=== PATIENT | female | born 1955 | race Caucasian/White ===

== ENCOUNTER → 2022-01-22 | Outpatient (CLI) | payer MEDICARE ==
--- NOTE | 2022-01-22 13:13 | RAD ---
Exam: CT abdomen/pelvis without intravenous contrast Indication: Left flank pain, started today. Hematuria Comparison: None Technique: Helical CT imaging performed of the abdomen and pelvis without the use of intravenous cont rast. Sagittal and coronal reformats were obtained. One or more of the following individualized dose reduction techniques were utilized for this examinat ion: 1. Automated exposure control 2. Adjustment of the mA and/or kV according to patient size 3. Use of iterative reconstruction technique. Findings: Inherently limited evaluation without intravenous contrast. Lower chest: Lung bases are clear. The heart is normal in size. Liver: There is a calcification in the dome of the liver. The liver is otherwise unremarkable in appe arance. Gallbladder/Biliary Tree: Normal. Pancreas: Normal. Spleen: Normal. Adrenal Glands: Normal. Kidneys/Ureters/Bladder: Kidneys are normal in size. There is no visualized urolithiasis or hydroneph rosis. The visualized portion of ureters are normal. Distal ureters and bladder are obscured by strea k artifact from hip prostheses. Reproductive Organs: Uterus is unremarkable. No adnexal mass visualized. Stomach, small bowel, and colon: The stomach is normal. There is no small bowel obstruction. Mild sca ttered diverticula in the descending and sigmoid colon. The appendix is normal. Vasculature: Abdominal aorta is normal in caliber. Lymph Nodes: No lymphadenopathy. Peritoneum and retroperitoneum: No free fluid or free air. Bones: There are bilateral hip prostheses. The bones are diffusely demineralized. There is 7 mm anter olisthesis of L4 on L5 related to severe facet arthrosis. Mild degenerative disc disease. There are c hronic appearing left L1 and L2 transverse process fractures. Miscellaneous: There is a fat-containing left inguinal hernia. IMPRESSION: 1. No visualized urolithiasis or hydronephrosis. The distal ureters and bladder are mostly obscured by streak artifact from bilateral hip prostheses. 2. Mild colonic diverticulosis. No acute diverticulitis. 3. Fat-containing left inguinal hernia. Electronically signed by: Ban Bright MD (01/22/2022 1:06 PM) [id number]
== END ==
LOC: RAD 11:38
PROVIDERS: ATTEND Family Medicine
DX: K57.30 Diverticulosis of large intestine without perforation or abscess without bleeding (principal); K40.90 Unilateral inguinal hernia, without obstruction or gangrene, not specified as recurrent; R31.9 Hematuria, unspecified; M51.36 Other intervertebral disc degeneration, lumbar region; M47.816 Spondylosis without myelopathy or radiculopathy, lumbar region
CPT/HCPCS: 74176